=== PATIENT | male | born 1955 | race Caucasian/White ===

== ENCOUNTER 2025-01-31 13:04 | Inpatient (IN) ==
[2025-01-31] MEDS ORDERED: IOPAMIDOL 100 ML BOTTLE IV ONE (13:05)
[2025-01-31 14:32] LABS: Anion Gap 8.0 (8.0-16.0); Blood Urea Nitrogen 22 mg/dL (8-23); Calcium 8.6 mg/dL (8.6-10.4); Carbon Dioxide 26 mmol/L (22-30); Chloride 104 mmol/L (96-108); Glucose 109 mg/dL (70-105); Potassium 4.0 mmol/L (3.3-5.1); Sodium 138 mmol/L (133-145)
[2025-01-31 14:42] LABS: Basophils # (Auto) 0.06 K/mcL (0.00-0.30); Basophils % (Auto) 0.6 % (0.0-2.0); Eosinophils # (Auto) 0.08 K/mcL (0.00-0.70); Eosinophils % (Auto) 0.8 % (0.0-7.0); Hematocrit 19.1 % (40.1-51.0); Hemoglobin 5.3 g/dL (13.7-17.5); Lymphocytes # (Auto) 2.61 K/mcL (1.50-4.80); Lymphocytes % (Auto) 27.2 % (15.5-49.0); Mean Corpuscular HGB Conc 27.7 g/dL (31.0-36.0); Monocytes # (Auto) 0.50 K/mcL (0.10-0.90); Monocytes % (Auto) 5.2 % (1.0-12.0); Neutrophils % (Auto) 66.0 % (38.0-78.0); Platelet Count 371 K/mcL (140-440); RBC 3.01 M/mcL (4.63-6.08); WBC 9.6 K/mcL (4.5-11.0)
[2025-01-31] MEDS: 0.9 % SODIUM CHLORIDE 250 ML IV SCH ×2 (15:31)
[2025-01-31 18:02] LABS: Ferritin 15.6 ng/mL (30.0-400.0); Iron 8.0 ug/dL (61-157); TIBC Calculation 319.0 ug/dl (228-428); Transferrin % Saturation 3.0 % (20-50)
[2025-01-31 18:24] LABS: INR 1.1 (0.9-1.1); Partial Thromboplastin Time 35.6 sec (20.0-37.0); Prothrombin Time 15.3 sec (11.9-14.5)
[2025-01-31 19:21] LABS: ALT/SGPT 10 U/L (<40); AST/SGOT 18 U/L (<40); Albumin 3.3 gm/dL (3.2-5.2); Albumin/Globulin Ratio 1.1 (1.0-2.3); Alkaline Phosphatase 65 U/L (39-117); Anion Gap 12.0 (8.0-16.0); Bilirubin,Direct < 0.2 mg/dL (0-0.3); Bilirubin,Total 0.2 mg/dL (0.1-1.0); Blood Urea Nitrogen 22 mg/dL (8-23); Calcium 8.6 mg/dL (8.6-10.4); Carbon Dioxide 22 mmol/L (22-30); Chloride 104 mmol/L (96-108); Globulin 2.9 gm/dL (2.2-3.7); Glucose 107 mg/dL (70-105); Phosphorous 3.1 mg/dL (2.5-4.5); Potassium 4.1 mmol/L (3.3-5.1); Sodium 138 mmol/L (133-145); Triglycerides 67 mg/dL (<150); Uric Acid 3.5 mg/dL (2.5-8.0)
[2025-01-31] MEDS ORDERED: ONDANSETRON 4 MG/2 ML VIAL IV PRN (19:55)
[2025-01-31] MEDS ORDERED: SENNOSIDES 1 TABLET PO PRN (19:55)
[2025-01-31] MEDS ORDERED: ACETAMINOPHEN 325 MG TABLET PO PRN (19:55)
[2025-01-31] MEDS ORDERED: LACTULOSE 20 GM/30 ML ORAL.SOL PO PRN (19:55)
[2025-01-31] MEDS: IRON SUCROSE COMPLEX 100 MG/5 ML VIAL IV SCH (21:01)
[2025-01-31] MEDS: IRON SUCROSE COMPLEX 100 MG/5 ML VIAL IV ONE (21:21)
[2025-01-31] MEDS: IRON SUCROSE COMPLEX 300 MG in 0.9 % SODIUM CHLORIDE 250 ML IV SCH (21:22)
[2025-01-31] MEDS: BUPRENORPHINE/NALOXONE 4MG/1MG ORAL FILM SL SCH (21:59)
[2025-01-31] MEDS: 0.9 % SODIUM CHLORIDE 10 ML SYRINGE IV SCH (22:00)
[2025-02-01 05:17] LABS: Basophils # (Auto) 0.07 K/mcL (0.00-0.30); Basophils % (Auto) 0.8 % (0.0-2.0); Eosinophils # (Auto) 0.20 K/mcL (0.00-0.70); Eosinophils % (Auto) 2.4 % (0.0-7.0); Hematocrit 23.9 % (40.1-51.0); Hemoglobin 7.4 g/dL (13.7-17.5); Lymphocytes # (Auto) 2.31 K/mcL (1.50-4.80); Lymphocytes % (Auto) 27.7 % (15.5-49.0); Mean Corpuscular HGB Conc 31.0 g/dL (31.0-36.0); Monocytes # (Auto) 0.55 K/mcL (0.10-0.90); Monocytes % (Auto) 6.6 % (1.0-12.0); Neutrophils % (Auto) 62.1 % (38.0-78.0); Platelet Count 299 K/mcL (140-440); RBC 3.54 M/mcL (4.63-6.08); WBC 8.3 K/mcL (4.5-11.0)
[2025-02-01 05:24] LABS: ALT/SGPT 8 U/L (<40); AST/SGOT 15 U/L (<40); Albumin 2.9 gm/dL (3.2-5.2); Albumin/Globulin Ratio 1.2 (1.0-2.3); Alkaline Phosphatase 57 U/L (39-117); Anion Gap 8.0 (8.0-16.0); Bilirubin,Direct < 0.2 mg/dL (0-0.3); Bilirubin,Total 0.4 mg/dL (0.1-1.0); Blood Urea Nitrogen 20 mg/dL (8-23); Calcium 7.9 mg/dL (8.6-10.4); Carbon Dioxide 25 mmol/L (22-30); Chloride 105 mmol/L (96-108); Globulin 2.5 gm/dL (2.2-3.7); Glucose 70 mg/dL (70-105); Phosphorous 3.0 mg/dL (2.5-4.5); Potassium 4.1 mmol/L (3.3-5.1); Sodium 138 mmol/L (133-145); Triglycerides 43 mg/dL (<150); Uric Acid 3.6 mg/dL (2.5-8.0)
[2025-02-01] MEDS: FINASTERIDE 5 MG TABLET PO SCH (08:54)
[2025-02-01] MEDS: PANTOPRAZOLE 40 MG VIAL IV SCH (08:59)
[2025-02-01] MEDS: LACTATED RINGERS 1,000 ML IV SCH (08:59)
[2025-02-01] MEDS ORDERED: POTASSIUM CHLORIDE 10 MEQ TABLET PO SCH (09:00)
[2025-02-01] MEDS: TADALAFIL 5 MG PO SCH (11:53)
[2025-02-01 13:08] LABS: Bilirubin,Urine Negative (Negative); Color,Urine YELLOW; Glucose,Urine (UA) Negative (Negative); Ketones,Urine 5 mg/dL (Negative); Leukocyte Esterase,Urine Negative /uL (Negative); PH,Urine 6.0 (5.0-9.0); Protein,Urine Negative (Negative); Specific Gravity,Urine 1.040 (1.000-1.035); Urobilinogen,Urine Negative
[2025-02-01] MEDS: BUPRENORPHINE/NALOXONE 4MG/1MG ORAL FILM SL SCH (17:27)
[2025-02-01] MEDS: 0.9 % SODIUM CHLORIDE 250 ML IV SCH (22:15)
[2025-02-02 06:18] LABS: Basophils # (Auto) 0.09 K/mcL (0.00-0.30); Basophils % (Auto) 1.1 % (0.0-2.0); Eosinophils # (Auto) 0.28 K/mcL (0.00-0.70); Eosinophils % (Auto) 3.5 % (0.0-7.0); Hematocrit 24.8 % (40.1-51.0); Hemoglobin 7.6 g/dL (13.7-17.5); Lymphocytes # (Auto) 1.96 K/mcL (1.50-4.80); Lymphocytes % (Auto) 24.7 % (15.5-49.0); Mean Corpuscular HGB Conc 30.6 g/dL (31.0-36.0); Monocytes # (Auto) 0.67 K/mcL (0.10-0.90); Monocytes % (Auto) 8.5 % (1.0-12.0); Neutrophils % (Auto) 61.9 % (38.0-78.0); Platelet Count 273 K/mcL (140-440); RBC 3.57 M/mcL (4.63-6.08); WBC 7.9 K/mcL (4.5-11.0)
[2025-02-02] MEDS ORDERED: HYDROCHLOROTHIAZIDE 12.5 MG CAPSULE PO SCH (09:00)
[2025-02-02] MEDS ORDERED: PROPOFOL 200 MG/20 ML VIAL IV ONE (12:27)
[2025-02-02] MEDS ORDERED: LIDOCAINE 2% PF 5 ML VIAL IJ ONE (12:27)
[2025-02-02] MEDS ORDERED: ONDANSETRON 4 MG/2 ML VIAL IV ONE (12:27)
[2025-02-02] MEDS ORDERED: GLYCOPYRROLATE 0.2 MG/ML VIAL IV ONE (12:27)
[2025-02-02] MEDS: VITAMIN D3 25 MCG TABLET PO SCH (13:00)
[2025-02-02] MEDS: POTASSIUM CHLORIDE 10 MEQ TABLET PO SCH (13:04)
[2025-02-03 06:32] LABS: Basophils # (Auto) 0.09 K/mcL (0.00-0.30); Basophils % (Auto) 1.1 % (0.0-2.0); Eosinophils # (Auto) 0.26 K/mcL (0.00-0.70); Eosinophils % (Auto) 3.1 % (0.0-7.0); Hematocrit 24.7 % (40.1-51.0); Hemoglobin 7.3 g/dL (13.7-17.5); Lymphocytes # (Auto) 1.83 K/mcL (1.50-4.80); Lymphocytes % (Auto) 21.6 % (15.5-49.0); Mean Corpuscular HGB Conc 29.6 g/dL (31.0-36.0); Monocytes # (Auto) 0.72 K/mcL (0.10-0.90); Monocytes % (Auto) 8.5 % (1.0-12.0); Neutrophils % (Auto) 65.3 % (38.0-78.0); Platelet Count 269 K/mcL (140-440); RBC 3.45 M/mcL (4.63-6.08); WBC 8.5 K/mcL (4.5-11.0)
[2025-02-03] MEDS: 0.9 % SODIUM CHLORIDE 250 ML IV SCH (12:18)
[2025-02-03 14:50] VITALS: TEMP 98.1; O2SAT 95
== END 2025-02-03 14:39 | disposition home or self-care (01) | DRG 375 ==
LOC: ED 13:04 → ICU 19:41
PROVIDERS: ADMIT Internal Medicine; ATTEND Internal Medicine